=== PATIENT | male | born 1950 | race Caucasian/White ===

== ENCOUNTER 2020-11-20 07:47 | Day surgery (SDC) | payer MEDICARE, OTHER, SELFPAY ==
[2020-11-14 08:07] VITALS: BMI 27.9
[2020-11-20] VITALS (9 sets, daily range): BP systolic 115–133; BP diastolic 43–83; PULSE 71–80; RESP 14–18; TEMP 36.1–36.5; O2SAT 96–99; BMI 27.9
[2020-11-20] MEDS: LACTATED RINGERS 1,000 ML 42 ML IV (08:33)
--- NOTE | 2020-11-20 08:40 | PM.HP.1 ---
History of Present Illness History of Present Illness Date Patient Seen: 11/20/20 Time Patient Seen: 08:40 Chief complaint: SDC Narrative: 70-year-old healthy male here for elective left inguinal hernia repair. Please refer to the H& P from October 2020 for further detail. No interval changes in health. Patient History Medical History Asthma Hx SBO (10/03/14) Surgical History History of appendectomy History of hernia surgery Family & Social History Family History Father Heart disease Social History: household members spouse Tobacco & Substance use: Smoking Status Never smoker alcohol intake current alcohol intake frequency a few times a week Substance Use Type does not use Meds Home Medications and Allergies Home Medications Medication Instructions Recorded Confirmed Type No Known Home Medications 10/15/20 11/20/20 History Allergies Allergy/AdvReac Type Severity Reaction Status Date / Time No Known Drug Allergies Allergy Verified 11/20/20 08:13 Review of Systems Review of Systems ROS: Yes All systems reviewed with the patient and are negative except as otherwise documented Exam Vital Signs (past 8 hours): - 11/20/20 08:15 Temperature 97.6 F Pulse Rate 74 Respiratory Rate 18 Blood Pressure 133/83 Pulse Oximetry 98 Oxygen Delivery Method Room Air Narrative Exam Narrative: GENERAL-well developed adult male, no acute distress HEENT-no scleral icterus, hearing intact NECK-no JVD, trachea midline CVS- regular rate, no peripheral edema RESP-unlabored respiratory effort, no audible wheezing GI-soft, nontender nondistended MSK-no cyanosis or clubbing, extremities without deformity SKIN-warm, dry NEURO-alert and oriented, no focal deficits PYSCH-Appropriate mood and affect Assessment & Plan Assessment & Plan narrative: 70-year-old male healthy reducible left inguinal hernia here for open elective repair. Operative risks discussed again including bleeding infection, damage to surrounding structures reoccurence chronic pain. Questions answered site marked in agreement with this plan.
[2020-11-20] MEDS: MIDAZOLAM 2 MG/2 ML VIAL IV (08:51)
[2020-11-20] MEDS: CEFAZOLIN 1 GM VIAL 2 GM IV (09:05)
--- NOTE | 2020-11-20 09:17 | SUR.OPER ---
Supine on padded OR bed, head on pillow, arms secured on padded arm boards at <90 degrees abduction, legs uncrossed, safety belt at thigh, tape over blanket over lower legs.
[2020-11-20] MEDS: BUPIVACAINE 0.25% (PF) VIAL 30 ML INJ (09:27)
--- NOTE | 2020-11-20 10:15 | PM.OP.1 ---
Operative Date/Time/Diagnoses Date of procedure: 11/20/20 Time of procedure: 10:15 Pre-op diagnosis: recurrent left inguinal hernia Post-op diagnosis: same Procedure & Clinicians Procedure: recurrent left inguinal hernia repair Same procedure as scheduled: Yes Indications: recurrent left inguinal hernia reducible Surgeon: Scotty Jacob Operative Notes Findings: recurrent direct floor defect, cord lipoma Specimen(s): none sent Estimated Blood Loss (mL): 20 Procedure in detail: The patient was placed supine on the table and bilateral lower extremity compression devices were applied. Anesthesia was induced they were intubated with an LMA and received 2g of Ancef. A time-out was performed. They were prepped and draped in sterile fashion. The left external inguinal ring and the anterior superior iliac crest were identified and marked. 1 finger breath above the inguinal ligament the skin was infiltrated with 0.25% bupivacaine. The skin incision was made here and the subcutaneous tissues were divided with electrocautery exposing the external oblique aponeurosis which was then opened along the direction of its fibers. Using blunt dissection the internal oblique aporneurosis was from the external oblique upper leaflet which were quite fused secondary to a childhood previous repair. Using a kittner the cord was carefully dissected away from the inguinal canal adjacent to the pubic tubercle. The cord including the vas deferens, testicular bloody supply, ilioguinal and genital nerve were encircled with a Carson drain. A moderate size direct floor defect was identified and it was reduced into the abdomen and the internal oblique aporneuorsis was approximated to the inguinal ligament with Ethibond suture to reapproximate the floor over a plug of mesh which was secured to the inguinal ligament and the interal oblique with vircyl.. The cremasteric fibers surrounding the cord were divided using electrocautery adjacent to the internal ring.. The vas deferens and the testicular vessels were preserved and protected. There was no ndirect hernia there was a large cord lipoma which was skelontized away from the remaining cord structures. I selected a 7x 15 cm lightweight Pro Loop hernia mesh. The inferior medial aspect of the mesh was anchored to insertion of the rectus muscle to the pubic tubercle such that there was approximately 2 cm of tubercle overlap with Ethibond and then was run continuously along the inferior edge of the mesh to the shelving edge of the inguinal ligament. Interrupted 3 0 Vicryl suture was used to anchor the superior aspect of the mesh to the conjoined tendon in several places. The tails were then reapproximated loosely around the spermatic cord. The tails of the mesh were then tucked under the external oblique aponeurosis. The repair was checked for hemostasis. The wound was irrigated with sterile saline. The external oblique aponeurosis was reapproximated in a running fashion using 3 0 Vicryl. The subcutaneous tissues were reapproximated with 3 0 Vicryl skin closed with 4 0 Monocryl followed by the application of Dermabond. At the end of the operation I ensured that both testicles were within the scrotum. The sponge instrument count at the end operation was correct. The patient emerged from anesthesia was extubated and transferred to the postoperative care unit in stable condition. A total of 30 ml of of 0.25% bupivicaine was used to infiltrate the skin. Complications: none Post-operative Condition: stable Disposition: same day surgery
[2020-11-20] MEDS: OXYCODONE/ACETAMINOPHEN 5/325 TABLET 1 TAB PO (11:24)
== END 2020-11-20 11:54 | disposition home or self-care (01) ==
PROVIDERS: PCP Family Medicine; Referring Provider Surgery; Visit Provider Surgery
PROC: (CPT 49520; principal; 2020-11-20 09:15)
DX: K40.90 Unilateral inguinal hernia, without obstruction or gangrene, not specified as recurrent (principal); J45.909 Unspecified asthma, uncomplicated; D17.6 Benign lipomatous neoplasm of spermatic cord
CPT/HCPCS: 49520; C1781; J0690; J1100; J2250; J2405; J2704; J3010